=== PATIENT | female | born 1970 | race Caucasian/White ===

== ENCOUNTER 2017-10-23 15:22 | Emergency (ER) | payer MEDICAID, OTHER ==
[2017-10-23] MEDS ORDERED: BUFFERED LIDOCAINE 10 ML SYRINGE SUBQ ONE (16:55)
[2017-10-23] MEDS ORDERED: LORazepam 2 MG/ML VIAL IVP STA (16:55)
[2017-10-23] MEDS ORDERED: HYDROmorphone 1 MG/ML CARPUJECT IVP STA (16:55)
[2017-10-23] MEDS ORDERED: VANCOMYCIN INJ 2 GM in SODIUM CHLORIDE 0.9% 500 ML IV STA (16:55)
--- NOTE | 2017-10-23 16:58 | ED Physician Documentation ---
PD HPI SKIN - Stated complaint Stated Complaint: Infected Knee - Chief complaint Chief Complaint: Wound - History obtained from History obtained from: Patient - History of Present Illness Timing - onset: Other (She had a little scratch on the anterior left knee a few days ago it became infected with pustules and now the whole leg is swollen and a lot of pain. No fevers but she has had chills.) Review of Systems Ten Systems: 10 systems reviewed and negative Constitutional: reports: Chills. denies: Fever Cardiac: denies: Chest pain / pressure, Palpitations Respiratory: denies: Dyspnea, Cough GI: denies: Abdominal Pain PD PAST MEDICAL HISTORY - Past Medical History Past Medical History: Yes Other Past Medical History: Hepatitis C - Past Surgical History Past Surgical History: No - Present Medications Home Medications: Ambulatory Orders Medication Instructions Recorded Confirmed No Known Home Medications 10/23/17 10/23/17 - Allergies Allergies/Adverse Reactions: Allergies Allergy/AdvReac Type Severity Reaction Status Date / Time No Known Drug Allergies Allergy Verified 08/19/14 13:57 - Social History Does the pt smoke?: Yes Smoking Status: Current every day smoker Does the pt drink ETOH?: No Does the pt have substance abuse?: No - Family History Family history: reports: Non contributory - Immunizations Immunizations are current?: Yes - POLST Patient has POLST: No PD ED PE NORMAL - Vitals Vital signs reviewed: Yes - General General: Alert and oriented X 3 (anxious) - HEENT HEENT: PERRL, EOMI - Neck Neck: Supple, no meningeal sign, No bony TTP - Cardiac Cardiac: RRR, No murmur - Respiratory Respiratory: No respiratory distress, Clear bilaterally - Abdomen Abdomen: Normal bowel sounds, Soft, Non tender - Back Back: No CVA TTP, No spinal TTP - Derm Derm: Normal color, Warm and dry - Extremities Extremities: Other (She has a large abscess over the anterior knee with some limited range of motion but not like a septic knee. There is no posterior tenderness or swelling. There is reactive edema down the anterior part of the leg.) - Neuro Neuro: Alert and oriented X 3, Normal speech - Psych Psych: Normal mood, Normal affect Results - Vitals Vitals: Vital Signs - 24 hr 10/23/17 10/23/17 15:45 18:40 Temperature 37.1 C 36.7 C Heart Rate 133 H 115 H Respiratory 18 16 Rate Blood Pressure 134/100 H 129/99 H O2 Saturation 98 99 Oxygen O2 Source Room air - Labs Labs: Laboratory Tests 10/23/17 10/23/17 10/23/17 17:08 17:08 17:08 WBC 25.7 H RBC 5.02 Hgb 15.3 Hct 44.4 MCV 88.3 MCH 30.4 MCHC 34.4 RDW 14.4 Plt Count 285 MPV 7.3 L Neut # (Auto) 21.3 H Lymph # (Auto) 1.5 [place] # (Auto) 2.8 H Eos # (Auto) 0.0 Baso # (Auto) 0.1 Absolute Nucleated RBC 0.00 Band Neuts % (Manual) Not Reportable Abnorm Lymph % (Manual) Not Reportable Nucleated RBC % 0.0 Neutrophils # (Manual) Not Reportable Lymphocytes # (Manual) Not Reportable Monocytes # (Manual) Not Reportable Eosinophils # (Manual) Not Reportable Basophils # (Manual) Not Reportable Differential Comment MANUAL=AUTO DIFF Manual Slide Review Indicated Platelet Estimate NORMAL (130-450,000) Platelet Morphology NORMAL APPEARANCE RBC Morph Micro Appear NORMAL APPEARANCE Sodium 133 L Potassium 3.8 Chloride 95 L Carbon Dioxide 26 Anion Gap 12.0 BUN 11 Creatinine 0.8 Estimated GFR (MDRD) 76 L Glucose 116 H Lactic Acid 1.2 Calcium 9.4 Total Bilirubin 1.3 H AST 21 ALT 19 Alkaline Phosphatase 97 Total Protein 9.1 H Albumin 4.1 Globulin 5.0 H Albumin/Globulin Ratio 0.8 L Lipase 28 Procedures - Abscess I&D (location) L knee Preparation: Betadine, Lidocaine 1% Incision: Incised with scalpel (He was incised in the most fluctuant part, and then hemostats were used to explore it. It turned out that the abscess cavity was very extensive and hemostats were used to go to the superior end of it and then another incision was made and looped [place] drain was placed through this. A culture was obtained. She tolerated this well.) PD MEDICAL DECISION MAKING - ED course ED course: 47-year-old woman with history of hepatitis C presents with a left knee abscess and extensive cellulitis of the left leg. She is significantly tachycardic and has a white count 25.7. An incision and drainage was done and cultures were obtained. Think she will need to be admitted for IV antibiotic therapy. She was given vancomycin here. The hospital was full and could not admit her here. She was accepted [facility] inpatient by Dr. Monahan at 1855 and cobras were completed. - Sepsis Event Vital Signs: Vital Signs - 24 hr 10/23/17 10/23/17 15:45 18:40 Temperature 37.1 C 36.7 C Heart Rate 133 H 115 H Respiratory 18 16 Rate Blood Pressure 134/100 H 129/99 H O2 Saturation 98 99 Oxygen O2 Source Room air Departure - Departure Disposition: 02 Transfer Acute Care Hosp Clinical Impression: Abscess of left leg, Left leg cellulitis Condition: Serious
[2017-10-23 17:15] LABS: BASOPHILS # (AUTO) 0.1 10^3/uL (0.0-0.1); BASOPHILS % (AUTO) 0.3 %; HGB - HEMOGLOBIN 15.3 g/dL (12.0-16.0); LYMPHOCYTES # (AUTO) 1.5 10^3/uL (1.5-3.5); LYMPHOCYTES % (AUTO) 5.8 %; MEAN CORPUSCULAR HEMOGLOBIN 30.4 pg (27.0-31.0); MEAN CORPUSCULAR HGB CONC 34.4 g/dL (32.0-36.0); MEAN CORPUSCULAR VOLUME 88.3 fL (81.0-99.0); MEAN PLATELET VOLUME 7.3 fL (7.9-10.8); MONOCYTES # (AUTO) 2.8 10^3/uL (0.0-1.0); NEUTROPHILS # (AUTO) 21.3 10^3/uL (1.5-6.6); NEUTROPHILS % (AUTO) 82.9 %; PLT - PLATELET COUNT 285 10^3/uL (130-450); RED BLOOD COUNT 5.02 10^6/uL (4.20-5.40); RED CELL DISTRIBUTION WIDTH 14.4 % (12.0-15.0); WHITE BLOOD COUNT 25.7 x10^3/uL (4.8-10.8)
[2017-10-23 17:30] LABS: ALBUMIN 4.1 g/dL (3.2-5.5); ALBUMIN/GLOBULIN RATIO 0.8 (1.0-2.2); BILIRUBIN,TOTAL 1.3 mg/dL (0.2-1.0); CALCIUM 9.4 mg/dL (8.5-10.3); CREATININE 0.8 mg/dL (0.4-1.0); TOTAL PROTEIN 9.1 g/dL (6.7-8.2)
[2017-10-23 17:42] LABS: DIFFERENTIAL COMMENT MANUAL=AUTO DIFF; PLATELET ESTIMATE, MANUAL NORMAL (130-450,000) (NORMAL); PLATELET MORPHOLOGY NORMAL APPEARANCE (NORMAL); RBC MORPHOLOGY (MULTIPLE) NORMAL APPEARANCE (NORMAL)
[2017-10-23] MEDS ORDERED: LIDOCAINE 1%-EPI 1:100000 30 ML MDV ONE (18:11)
[2017-10-23 20:11] VITALS: BP 128/90
== END 2017-10-23 20:15 | disposition short-term general hospital (02) ==
LOC: ED 15:22
DX: L02.416 Cutaneous abscess of left lower limb (principal); L03.116 Cellulitis of left lower limb; Z86.19 Personal history of other infectious and parasitic diseases; F17.200 Nicotine dependence, unspecified, uncomplicated; R00.0 Tachycardia, unspecified
CPT/HCPCS: 10061; 36415; 80053; 83605; 83690; 85025; 87040; 87070; 87181; 87205; 96365; 96366; 96375; 99284; J1170; J2060; J3370

== ENCOUNTER 2017-10-23 20:20 | Outpatient (CLI) | payer OTHER, MEDICAID | END 2017-10-23 20:21 | disposition short-term general hospital (02) | LOC: EMS 20:20 | PROVIDERS: ATTEND Surgery | DX: L03.116 Cellulitis of left lower limb (principal) | CPT/HCPCS: A0425; A0426; A0999 ==

== ENCOUNTER 2017-10-30 12:00 | Emergency (ER) | payer OTHER, MEDICAID ==
[2017-10-30 12:20] VITALS: BP 117/68
--- NOTE | 2017-10-30 13:13 | ED Physician Documentation ---
PD HPI WOUND RECHECK - Stated complaint Stated Complaint: WOUND CHECK/CLEAN - Chief complaint Chief Complaint: Wound - Histroy obtained from History obtained from: Patient - Additional information Additional information: 47-year-old female presents the emergency department for evaluation of a wound reevaluation. The patient recently had a large left leg abscess drained in the operating room at [facility]. The patient presents the emergency department for wound reevaluation and dressing change. The patient was too scared to change her own dressing. The patient reports improved swelling, decreased redness and overall improvement of the wound. The patient is currently taking the antibiotic Bactrim. No fevers or chills. Symptoms are improving. The patient has noticed a small area of wound dehiscence. Review of Systems Constitutional: denies: Fever, Chills Cardiac: denies: Chest pain / pressure Respiratory: denies: Cough Skin: reports: Other (wound) Musculoskeletal: reports: Extremity pain PD PAST MEDICAL HISTORY - Past Surgical History Past Surgical History: No - Present Medications Home Medications: Ambulatory Orders Medication Instructions Recorded Confirmed Sulfamethox/Trimeth 800/160 10/30/17 [Bactrim Ds] - Allergies Allergies/Adverse Reactions: Allergies Allergy/AdvReac Type Severity Reaction Status Date / Time No Known Drug Allergies Allergy Verified 10/30/17 12:20 - Social History Does the pt smoke?: Yes Smoking Status: Current every day smoker Does the pt drink ETOH?: No Does the pt have substance abuse?: No - Immunizations Immunizations are current?: Yes - POLST Patient has POLST: No PD ED PE NORMAL - General General: Alert and oriented X 3, No acute distress - HEENT HEENT: Atraumatic, PERRL, EOMI, Ears normal - Neuro Neuro: Alert and oriented X 3, Normal speech - Psych Psych: Normal mood PD ED PE EXPANDED - Derm SKin visual: 1 - laceration (There is a large surgical incision over the left knee, there is no active area of drainage. There is no acute cellulitic changes. There is a 1 cm area of wound dehiscence over the patella. There is no underlying abscess presently.) Results - Vitals Vitals: Vital Signs - 24 hr 10/30/17 12:14 Temperature 36.6 C Heart Rate 77 Respiratory 18 Rate Blood Pressure 117/68 O2 Saturation 96 Oxygen O2 Source Room air PD MEDICAL DECISION MAKING - ED course ED course: I obtained the operative report, the patient had a incision and drainage performed to the operating room of a large abscess with washout. There was no intra-articular involvement. The patient grew out MRSA which was susceptible to Bactrim. Presently, the wound is healing there is a small area of wound dehiscence over the patella. I removed 2 lluvia which were no longer providing any support. The wound was redressed. I advised that the patient should follow-up with the orthopedic surgeon as soon as possible for reevaluation. Presently the other lluvia are not ready to be taken out since it has only been a few days since the surgery. Presently, there is no evidence of acute cellulitis, abscess or sepsis which would necessitate further workup in the emergency department and the patient appears appropriate for discharge and ongoing outpatient management. I discussed warning signs and recommended returning to the emergency department immediately for any worsening or any concerns. - Sepsis Event Vital Signs: Vital Signs - 24 hr 10/30/17 12:14 Temperature 36.6 C Heart Rate 77 Respiratory 18 Rate Blood Pressure 117/68 O2 Saturation 96 Oxygen O2 Source Room air Departure - Departure Disposition: 01 Home, Self Care Clinical Impression: Wound check, abscess Condition: Good Instructions: ED Abscess IandD Follow-Up: Vane Samuel MD [Physician No Access] - (Please call your Surgeon today for a follow-up.) Comments: Please return to the emergency department for worsening symptoms or any concerns
== END 2017-10-30 13:16 | disposition home or self-care (01) ==
LOC: ED 12:00
DX: L02.416 Cutaneous abscess of left lower limb (principal); F17.200 Nicotine dependence, unspecified, uncomplicated
CPT/HCPCS: 99282; 99283